=== PATIENT | female | born 1960 | race Native Hawaiian/Other Pacific Islander ===

== ENCOUNTER 2022-05-08 12:36 | Emergency (ER) | payer OTHER ==
[~2022-05-08] VITALS: Ht 162.6 cm; Wt 72.6 kg
[2022-05-08 12:43] VITALS: BP 133/73; TEMP 97.4
== END 2022-05-08 14:24 | disposition home or self-care (01) ==
LOC: ED 12:36
DX: M54.59 Other low back pain (principal); G89.29 Other chronic pain; W18.39XA Other fall on same level, initial encounter; Y92.098 Other place in other non-institutional residence as the place of occurrence of the external cause
CPT/HCPCS: 99283